=== PATIENT | female | born 1980 | race Two or more races ===

== ENCOUNTER 2021-05-01 10:48 | Outpatient (CLI) | payer OTHER | END 2021-05-01 18:00 | disposition home or self-care (01) | LOC: LAB 10:48 | DX: Z03.818 Encounter for observation for suspected exposure to other biological agents ruled out (principal) ==

== ENCOUNTER 2021-05-06 08:37 | Outpatient (CLI) | payer OTHER | END 2021-05-06 08:38 | disposition home or self-care (01) | LOC: LAB 08:37 | PROVIDERS: ATTEND Emergency Medicine Pediatric Emergency Medicine | DX: Z03.818 Encounter for observation for suspected exposure to other biological agents ruled out (principal) ==

== ENCOUNTER 2022-04-26 15:47 | Emergency (ER) | payer OTHER ==
[~2022-04-26] VITALS: Ht 157.5 cm; Wt 101.6 kg
[2022-04-26] MEDS ORDERED: CIPRO500 MG PO (21:30)
[2022-04-26] MEDS ORDERED: KETO10TA2 PO (21:30)
== END 2022-04-27 00:51 | disposition home or self-care (01) ==
LOC: ER 15:47
DX: R10.9 Unspecified abdominal pain (principal); Z88.0 Allergy status to penicillin; Z88.6 Allergy status to analgesic agent; Z87.442 Personal history of urinary calculi; N20.2 Calculus of kidney with calculus of ureter